=== PATIENT | male | born 1975 | race Caucasian/White ===

== ENCOUNTER 2016-03-29 09:57 | Emergency (ER) | payer MEDICAID ==
[~2016-03-29] VITALS: Ht 170.2 cm; Wt 68.0 kg
[~2016-03-29 09:57] MED LIST: ACET500C5 PO; ACET500T98 PO; DIAZ5TAB4 PO; FAMO-18 PO; HYDR-906 PO; IBUP-1542 PO; NAPR-265 PO; ONDA4TAB35 PO; ULT50 PO
[2016-03-29 10:08] VITALS: Ht 170.2 cm; Wt 68.0 kg
[2016-03-29] MEDS ORDERED: ACETAMINOPHEN 500 MG TAB PO STA (10:51)
[2016-03-29] MEDS ORDERED: ONDANSETRON (ODT) 4 MG TAB ODT STA (10:51)
[2016-03-29] MEDS ORDERED: IBUPROFEN 600 MG TAB PO ONE (11:00)
[2016-03-29] MEDS ORDERED: LIDOCAINE/MYLANTA 40 ML BTL PO ONE (11:00)
[2016-03-29] MEDS ORDERED: LOPERAMIDE 2 MG CAP PO ONE (11:00)
[2016-03-29] MEDS ORDERED: BELLADONNA/PHENOBARBITAL 5ML CUP PO ONE (11:00)
[2016-03-29] MEDS ORDERED: ACET325T33 PO (11:05)
[2016-03-29] MEDS ORDERED: IBUP-1542 PO (11:05)
[2016-03-29] MEDS ORDERED: ONDA4TAB14 PO (11:05)
[2016-03-29] MEDS ORDERED: LOPE2CAP PO (11:05)
[2016-03-29] MEDS ORDERED: BELLADONNA/PHENOBARBITAL 5ML CUP PO SCH (11:30)
--- NOTE | 2016-03-29 12:09 | ERD ---
ER Documentation Chief Complaint Date/Time DATE: 03/29/16 TIME: 12:05 Chief Complaint AP , diarrhea, BLOOD X 2 days. HPI Patient is a 40-year-old male who complains of watery diarrhea today is a mild headache abdominal cramps a little nausea no vomiting some chills no fever no cough no sore throat. He did not take any medication. ROS All systems reviewed and are negative except as per history of present illness. Medications Home Meds Active Scripts Ibuprofen* (Motrin*) 600 Mg Tab, 600 MG PO Q6H Y for PAIN AND OR ELEVATED TEMP, #15 TAB Prov:OMARJAYLEEN DO 03/29/16 Acetaminophen* (Tylenol*) 325 Mg Tablet, 2 TAB PO Q6 Y for PAIN AND OR ELEVATED TEMP, #20 TAB Prov:OMAR,JAYLEEN DO 03/29/16 Ondansetron (Ondansetron Odt) 4 Mg Tab.rapdis, 4 MG PO Q6H Y for NAUSEA AND/OR VOMITING, #6 TAB Prov:OMARJAYLEEN DO 03/29/16 Loperamide Hcl* (Imodium*) 2 Mg Capsule, 2 MG PO .AFTER EA LOOSE BM Y for DIARRHEA, #10 TAB Prov:OMAR,JAYLEEN DO 03/29/16 Famotidine* (Pepcid*) 20 Mg Tablet, 20 MG PO BID for 5 Days, TAB Prov:OSBALDO HANKS PA-C 11/05/15 Ondansetron Hcl* (Zofran* ODT) 4 mg -ODT Tab.disper, 4 MG PO Q6 Y for NAUSEA AND /OR VOMITING, #10 TAB Prov:OSBALDO HANKS PA-C 11/05/15 Acetaminophen* (Tylophen*) 500 Mg Capsule, 1 CAP PO Q6H Y for PAIN AND OR ELEVATED TEMP, #20 CAP Prov:OSBALDO HANKS PA-C 11/05/15 Hydrocodone Bit-Acetaminophen ([place]) 5-325 Mg Tablet, 1 TAB PO QHS Y for PAIN, #10 TAB 0 Refills Prov:ELENI JUAREZ PA-C 03/21/15 Ibuprofen* (Motrin*) 600 Mg Tab, 600 MG PO BID, #30 TAB 0 Refills Prov:ELENI JUAREZ PA-C 03/21/15 Naproxen (Ec-Naprosyn) 500 Mg Tablet.dr, 500 MG PO BID, #60 Prov:ELVIN SHARMA DO 01/08/15 Diazepam* (Diazepam*) 5 Mg Tablet, 5 MG PO TID for MUSCLE SPASMS, #20 TAB Prov:ELVIN SHARMA DO 01/08/15 Tramadol HCl (Tramadol HCl) 50 Mg Tab, 50 MG PO Q6 Y for PAIN, #20 TAB Prov:ELVIN SHARMA DO 01/08/15 Acetaminophen (Tylenol) 500 Mg Tab, 500 MG PO TID, #30 TAB Prov:KATHRYN VIGIL PA-C 11/11/14 Allergies Allergies: Coded Allergies: No Known Allergy (Unverified , 01/08/15) PMhx/Soc Medical and Surgical Hx: pt denies Medical Hx, pt denies Surgical Hx History of Surgery: No Anesthesia Reaction: No Hx Neurological Disorder: No Hx Respiratory Disorders: No Hx Cardiac Disorders: Yes (intermittent hypotension) Hx Psychiatric Problems: No Hx Miscellaneous Medical Probl: Yes (gastritis) Hx Alcohol Use: No Hx Substance Use: No Hx Tobacco Use: No Smoking Status: Current every day smoker Physical Exam Vitals Vital Signs Date Time Temp Pulse Resp B/P Pulse Ox O2 Delivery O2 Flow Rate FiO2 03/29/16 10:08 97.6 66 18 96/64 99 Physical Exam Const: [Alert oriented 4, well-nourished well-developed nontoxic- appearing no apparent distress, interacts appropriately] Head: [Normocephalic/atraumatic, no scalp lesions] Eyes: [Normal Conjunctiva, PERRLA, EOMI no conjunctival injection no conjunctival discharge] ENT: [Normal External Ears, Nose and Mouth, no tonsillar exudates no tonsillar erythema no tonsillar edema oropharynx no erythema. bilateral ear canals are patent, bilateral tympanic membranes nonerythematous.] Neck: [Full range of motion. No meningismus. No cervical lymphadenopathy] Resp: [Clear to auscultation bilaterally, no wheezes rhonchi or rales, breathing normally, no tachypnea no nasal flaring no grunting no accessory muscle use no retractions] Cardio: [Regular rate and rhythm, no murmurs] Abd: [Soft, non tender, non distended. Normal bowel sounds, no rebound rigidity or guarding. Normoactive bowel sounds no flank tenderness, negative McBurney's negative Mera sign.] Skin: [No petechiae or rashes, no hives no urticaria no abscess no laceration no new warmth] Back: [No midline or flank tenderness, full range of motion without pain ] Ext: [No cyanosis, clubbing or edema] Neuro: M/S: Alert and oriented 4. Face: EOMI, face and pharynx with normal sensation and function Motor: Normal strength throughout, muscle strength is 5 out of 5 bilateral upper extremity and bilateral lower extremity Sensation: Normal sensation throughout Speech: Normal Cerebel: Normal coordination Normal gait DTR: 2+ and symmetric upper/lower extremities Psych: [Normal Mood and Affect, no suicidal ideation or homicide ideation] Results 24 hrs Current Medications Medications (Trade) Dose Ordered Sig/[place] Route PRN Reason Start Time Stop Time Status Last Admin Dose Admin Ibuprofen (Motrin) 600 mg ONCE ONCE PO 03/29/16 11:00 03/29/16 11:01 DC 03/29/16 11:00 Acetaminophen (Tylenol Tab) 1,000 mg ONCE STAT PO 03/29/16 10:51 03/29/16 10:54 DC 03/29/16 11:00 Miscellaneous Medication (Gi Cocktail (2)) 40 ml ONCE ONCE PO 03/29/16 11:00 03/29/16 11:01 DC 03/29/16 11:00 Belladonna Alkaloids/ Phenobarbital () 10 ml ONCE ONCE PO 03/29/16 11:00 03/29/16 11:01 DC Loperamide HCl (Imodium Cap) 4 mg ONCE ONCE PO 03/29/16 11:00 03/29/16 11:01 DC 03/29/16 11:07 Ondansetron HCl (Zofran Odt) 4 mg ONCE STAT ODT 03/29/16 10:51 03/29/16 10:54 DC 03/29/16 11:00 Belladonna Alkaloids/ Phenobarbital () 10 ml ONCE PO 03/29/16 11:30 03/29/16 11:30 DC 03/29/16 11:07 Procedures/MDM I doubt bacterial gastroenteritis that he has no fever or bloody diarrhea he appears well. May be malabsorption more likely a viral gastroenteritis as he has headache little nausea and abdominal cramps. He has no UTI symptoms were that UTI or pyelonephritis. The abdomen is not tender so I doubt cholangitis cholecystitis choledocholithiasis appendicitis or diverticulitis. Vital signs are stable we gave him medications for his symptoms here and will give him medications for symptoms for home. Follow-up PCP ED precautions discussed Departure Diagnosis: Primary Impression: Abdominal pain Abdominal location: generalized Qualified Code: R10.84 - Generalized abdominal pain Additional Impression: Diarrhea Diarrhea type: presumed infectious Qualified Code: A09 - Diarrhea of presumed infectious origin Condition: Stable Patient Instructions: Abdominal Pain, Treating Diarrhea, Gastroenteritis, Viral (6Y-Adult) JAYLEEN NELSON DO Mar 29, 2016 12:09
== END 2016-03-29 11:22 | disposition home or self-care (01) ==
LOC: FTE 09:57
DX: R10.84 Generalized abdominal pain (principal); A09 Infectious gastroenteritis and colitis, unspecified; F17.210 Nicotine dependence, cigarettes, uncomplicated; R11.0 Nausea
CPT/HCPCS: Z7502; Z7610; 99283

== ENCOUNTER 2016-04-08 21:26 | Emergency (ER) | payer MEDICAID ==
[~2016-04-08] VITALS: Wt 84.0 kg
[~2016-04-08 21:26] MED LIST changes: +ACET325T33 PO; +LOPE2CAP PO; +ONDA4TAB14 PO
[2016-04-08] MEDS ORDERED: ONDANSETRON 4 MG INJ IV STA (22:05)
[2016-04-08] MEDS ORDERED: FAMOTIDINE 20 MG INJ IV STA (22:05)
[2016-04-08] MEDS ORDERED: morphine 4 MG/ML VIAL IV STA (22:05)
[2016-04-08] MEDS ORDERED: SOD CHLORIDE 0.9% 1,000 ML IV STA (22:05)
[2016-04-08] MEDS ORDERED: BELLADONNA/PHENOBARBITAL TAB PO STA (22:05)
[2016-04-08] MEDS ORDERED: LIDOCAINE/MYLANTA 40 ML BTL PO STA (22:05)
[2016-04-08] MEDS ORDERED: SLEEP MEDS PO (22:23)
[2016-04-08 22:39] LABS: BASOPHIL # 0.1 10^3/ul (0.0-0.1); BASOPHILS % 0.6 % (0.0-2.0); EOSINOPHILS # 0.2 10^3/ul (0.0-0.5); EOSINOPHILS % 2.8 % (0.0-7.0); HEMATOCRIT 38.9 % (42.0-52.0); HEMOGLOBIN 13.1 g/dl (14.0-18.0); LYMPHOCYTES % 44.1 % (15.0-51.0); MEAN CORPUSCULAR HEMOGLOBIN 31.2 pg (29.0-33.0); MEAN CORPUSCULAR HGB CONC 33.7 g/dl (32.0-37.0); MEAN CORPUSCULAR VOLUME 92.5 fl (82.0-101.0); MEAN PLATELET VOLUME 8.3 fl (7.4-10.4); MONOCYTE # 0.8 10^3/ul (0.3-0.9); MONOCYTES % 8.9 % (0.0-11.0); NEUTROPHIL # 3.9 10^3/ul (1.6-7.5); NEUTROPHILS % 43.6 % (39.0-77.0); PLATELET COUNT 255 10^3/UL (140-440); RED CELL DISTRIBUTION WIDTH 13.2 % (11.5-14.5)
[2016-04-08 22:41] LABS: INR 0.91; PROTIME 12.2 Sec (12.2-14.2)
[2016-04-08 22:45] LABS: CONDITION 1
[2016-04-08 22:49] LABS: ALBUMIN 4.7 g/dl (3.3-4.9); POTASSIUM 3.8 mmol/L (3.5-5.1)
[2016-04-08 22:51] LABS: BILIRUBIN,INDIRECT 0.2 mg/dl (0-1.1); BILIRUBIN,TOTAL 0.2 mg/dl (0.2-1.3); CREATININE 0.78 mg/dl (0.61-1.24)
[2016-04-08 22:52] LABS: ALBUMIN/GLOBULIN RATIO 1.38; CALCIUM 9.6 mg/dl (8.4-10.2); TOTAL PROTEIN 8.1 g/dl (6.1-8.1)
--- NOTE | 2016-04-08 23:04 | RADRPT ---
PROCEDURE: CT Abdomen and Pelvis without contrast. CLINICAL INDICATION: Abdominal and pelvic pain. TECHNIQUE: CT scan of the abdomen and pelvis without contrast was performed. Coronal and sagittal reformatted images were obtained from the axial source images. Images were reviewed on a [employer] PACS workstation. Total exam DLP is 387.16 mGy-cm. CTDIvol is 6.92 mGy. One or more of the fo [place] dose reduction techniques were used: Automated exposure control, adjustment of the mA and/or kV according to patient size, use of iterative reconstruction technique. COMPARISON: None. FINDINGS: The lung bases are normal. There is no pleural effusion. The liver is normal in size and attenuation. There is no focal hepatic lesion. The gallbladder and bile ducts are normal. The spleen is normal in size. There is no focal splenic lesion. Both adrenals are normal with no enlargement or mass. The pancreas is unremarkable with no mass or evidence of pancreatitis. There is no renal mass or hydronephrosis. There is a nonobstructing 0.2 cm calculus in the upper rig ht kidney, a nonobstructing 0.1 cm calculus in the mid right kidney, and a nonobstructing 0.2 cm marianela culus in the lower right kidney. There is no other renal calculus or ureteral calculus. The abdominal aorta is not dilated. There is no retroperitoneal lymphadenopathy or mass. There is no pelvic lymphadenopathy or mass. The bladder and distal ureters are normal. The periappendiceal region is unremarkable with no evidence of appendicitis. There is mild diverticulosis of the sigmoid colon. There is no evidence of diverticulitis. The bow el and mesentery are otherwise normal. There is no free fluid or free gas. The osseous structures are unremarkable with no fracture or lytic lesion. IMPRESSION: 1. Multiple nonobstructing right renal calculi. 2. Mild diverticulosis of the sigmoid colon. No evidence of diverticulitis. 3. Otherwise normal noncontrast CT scan of the abdomen and pelvis. RPTAT: QQ .Toney Lucero MD, MD Date Time Electronically viewed and signed by .Toney Lucero MD, on 04/08/2016 23:04 .R/
[2016-04-08] MEDS ORDERED: KETOROLAC 15 MG INJ IV STA (23:22)
[2016-04-08] MEDS ORDERED: OXYC-279 PO (23:33)
[2016-04-08] MEDS ORDERED: ONDA4TAB8 PO (23:33)
[2016-04-08] MEDS ORDERED: IBUP-1542 PO (23:33)
--- NOTE | 2016-04-08 23:40 | ERD ---
ER Documentation Chief Complaint Date/Time DATE: 04/08/16 TIME: 23:38 Chief Complaint return visit for abd pain one week. nauseated HPI 40-year-old man has continued abdominal pain and nausea. He was seen and evaluated here last week a workup was unremarkable although CT scan imaging was deemed unnecessary at that time. He denies fevers or chills, no weight loss, no headache or blurry vision, no recent trauma, no dysuria. Patient does have a history of chronic recurrent abdominal pain. ROS All systems reviewed and are negative except as per history of present illness. Medications Home Meds Active Scripts Oxycodone HCl/Acetaminophen (Percocet 5-325 mg Tablet) 1 Each Tablet, 1 EACH PO TID for PAIN, #12 TAB Prov:REAL VIERA MD 04/08/16 Ondansetron Hcl* (Zofran*) 4 Mg Tablet, 4 MG PO Q8H Y for NAUSEA AND/OR VOMITING , #15 TAB Prov:REAL VIERA MD 04/08/16 Ibuprofen* (Ibuprofen*) 600 Mg Tablet, 600 MG PO Q8 for PAIN AND/OR INFLAMMATION , #30 TAB Prov:REAL VIERA MD 04/08/16 Reported Medications [Sleep Meds] No Conflict Check, PO QHS 04/08/16 Discontinued Scripts Ibuprofen* (Motrin*) 600 Mg Tab, 600 MG PO Q6H Y for PAIN AND OR ELEVATED TEMP, #15 TAB Prov:JAYLEEN NELSON DO 03/29/16 Acetaminophen* (Tylenol*) 325 Mg Tablet, 2 TAB PO Q6 Y for PAIN AND OR ELEVATED TEMP, #20 TAB Prov:JAYLEEN NELSON DO 03/29/16 Ondansetron (Ondansetron Odt) 4 Mg Tab.rapdis, 4 MG PO Q6H Y for NAUSEA AND/OR VOMITING, #6 TAB Prov:JAYLEEN NELSON DO 03/29/16 Loperamide Hcl* (Imodium*) 2 Mg Capsule, 2 MG PO .AFTER EA LOOSE BM Y for DIARRHEA, #10 TAB Prov:JAYLEEN NELSON DO 03/29/16 Famotidine* (Pepcid*) 20 Mg Tablet, 20 MG PO BID for 5 Days, TAB Prov:OSBALDO HANKS PA-C 11/05/15 Ondansetron Hcl* (Zofran* ODT) 4 mg -ODT Tab.disper, 4 MG PO Q6 Y for NAUSEA AND /OR VOMITING, #10 TAB Prov:OSBALDO HANKS PA-C 11/05/15 Acetaminophen* (Tylophen*) 500 Mg Capsule, 1 CAP PO Q6H Y for PAIN AND OR ELEVATED TEMP, #20 CAP Prov:OSBALDO HANKS PA-C 11/05/15 Hydrocodone Bit-Acetaminophen ([place]) 5-325 Mg Tablet, 1 TAB PO QHS Y for PAIN, #10 TAB 0 Refills Prov:ELENI JUAREZ PA-C 03/21/15 Ibuprofen* (Motrin*) 600 Mg Tab, 600 MG PO BID, #30 TAB 0 Refills Prov:ELENI JUAREZ PA-C 03/21/15 Naproxen (Ec-Naprosyn) 500 Mg Tablet.dr, 500 MG PO BID, #60 Prov:ELVIN SHARMA DO 01/08/15 Diazepam* (Diazepam*) 5 Mg Tablet, 5 MG PO TID for MUSCLE SPASMS, #20 TAB Prov:ELVIN SHARMA DO 01/08/15 Tramadol HCl (Tramadol HCl) 50 Mg Tab, 50 MG PO Q6 Y for PAIN, #20 TAB Prov:ELVIN SHARMA DO 01/08/15 Acetaminophen (Tylenol) 500 Mg Tab, 500 MG PO TID, #30 TAB Prov:KATHRYN VIGIL PA-C 11/11/14 Allergies Allergies: Coded Allergies: No Known Allergy (Unverified , 04/08/16) PMhx/Soc History of hypotension, chronic abdominal pain History of Surgery: No Anesthesia Reaction: No Hx Neurological Disorder: No Hx Respiratory Disorders: No Hx Cardiac Disorders: Yes (intermittent hypotension) Hx Psychiatric Problems: No Hx Miscellaneous Medical Probl: Yes (gastritis) Hx Alcohol Use: No Hx Substance Use: No Hx Tobacco Use: No Smoking Status: Never smoker FmHx Family History: No diabetes Physical Exam Vitals Vital Signs Date Time Temp Pulse Resp B/P Pulse Ox O2 Delivery O2 Flow Rate FiO2 04/08/16 23:55 98.9 72 18 103/76 100 Room Air 04/08/16 22:00 98.9 76 18 104/79 100 Room Air 04/08/16 21:32 98.9 94 18 128/77 100 Physical Exam GENERAL: Well-developed, well-nourished, well-hydrated, in no apparent distress , looks nontoxic in appearance HEENT: Moist mucous membranes, pink conjunctiva, no cervical spine tenderness or step-off deformities, no goiter, no jaundice or icterus, extraocular movements intact without pain. No submandibular induration, and no pharyngeal erythema NEURO: Alert and oriented 3, cranial nerves II through XII intact bilaterally, pupils equal round reactive to light, no focal deficits or facial asymmetry, sensation intact distally Strength 5/5 in upper and lower extremities bilaterally CARDIAC: Regular rate and rhythm, no murmurs rubs or gallops LUNGS: Clear bilaterally no wheezing crackles or stridor ABDOMEN: Voluntary guarding although nontender abdomen, no guarding, no rigidity , no rebound, no psoas sign no obturator sign. Normoactive bowel sounds SKIN: Warm and dry to touch, no abrasions, contusions, or hematomas, no lacerations, no ecchymosis, no target lesions, and without ulcers EXTREMITIES: No clubbing cyanosis or edema, calves are bilaterally symmetrical, no Homans sign, no popliteal cord sign. Distal pulses equal and bilateral PSYCH: Normal affect without agitation or irritability Result Diagram: 04/08/16220904/08/162209 Results 24 hrs Laboratory Tests Test 04/08/16 22:10 Alanine Aminotransferase (ALT/SGPT) 18IU/L Albumin 4.7g/dl Albumin/Globulin Ratio 1.38 Alkaline Phosphatase 55IU/L Anion Gap 18 Aspartate Amino Transf (AST/SGOT) 27IU/L Basophils # 0.110^3/ul Basophils % 0.6% Blood Urea Nitrogen 10mg/dl Calcium Level 9.6mg/dl Carbon Dioxide Level 28mmol/L Chloride Level 104mmol/L Creatinine 0.78mg/dl Direct Bilirubin 0.00mg/dl Eosinophils # 0.210^3/ul Eosinophils % 2.8% Globulin 3.40g/dl Glucose Level 85mg/dl Hematocrit 38.9% Hemoglobin 13.1g/dl INR International Normalized Ratio 0.91 Indirect Bilirubin 0.2mg/dl Lipase 72U/L Lymphocytes # 4.010^3/ul Lymphocytes % 44.1% Mean Corpuscular Hemoglobin 31.2pg Mean Corpuscular Hemoglobin Concent 33.7g/dl Mean Corpuscular Volume 92.5fl Mean Platelet Volume 8.3fl Monocytes # 0.810^3/ul Monocytes % 8.9% Neutrophils # 3.910^3/ul Neutrophils % 43.6% Nucleated Red Blood Cells # 0.010^3/ul Nucleated Red Blood Cells % 0.0/100WBC Platelet Count 80207^3/UL Potassium Level 3.8mmol/L Prothrombin Time 12.2Sec Prothrombin Time Ratio 1.0 Red Blood Count 4.2010^6/ul Red Cell Distribution Width 13.2% Sodium Level 146mmol/L Total Bilirubin 0.2mg/dl Total Protein 8.1g/dl White Blood Count 9.010^3/ul Current Medications Medications (Trade) Dose Ordered Sig/[place] Route PRN Reason Start Time Stop Time Status Last Admin Dose Admin Sodium Chloride (NS) 1,000 ml @ 1,000 mls/hr Q1H STAT IV 04/08/16 22:05 04/08/16 23:04 DC 04/08/16 22:36 Morphine Sulfate (morphine) 4 mg ONCE STAT IV 04/08/16 22:05 04/08/16 22:06 DC 04/08/16 22:24 Ondansetron HCl (Zofran Inj) 4 mg ONCE STAT IV 04/08/16 22:05 04/08/16 22:06 DC 04/08/16 22:23 Famotidine (Pepcid Iv) 40 mg ONCE STAT IV 04/08/16 22:05 04/08/16 22:06 DC 04/08/16 22:23 Miscellaneous Medication (Gi Cocktail (2)) 40 ml ONCE STAT PO 04/08/16 22:05 04/08/16 22:06 DC 04/08/16 22:24 Belladonna/ Phenobarbital () 2 tab ONCE STAT PO 04/08/16 22:05 04/08/16 22:07 DC 04/08/16 22:23 Ketorolac Tromethamine (Toradol) 15 mg ONCE STAT IV 04/08/16 23:22 04/08/16 23:23 DC 04/09/16 00:12 Procedures/MDM IV line was established patient was placed on telemetry monitor rhythm strip revealed a sinus rhythm at about 80 bpm with upright P and T waves. Patient was afebrile. I administered 1 L normal saline intravenously, morphine 4 mg IV, Zofran 4 mg IV , GI cocktail 50 cc p.o., and famotidine 40 mg IV with good response. For continued discomfort he received Toradol 50 mg IV with resolution of pain. CBC, electrolytes, liver function tests were all normal. CT scan of the abdomen and pelvis was performed, given the patient's symptoms. There were nonobstructing right renal calculi and no evidence of diverticulitis. Please refer to radiologist dictation for full report. Differential diagnoses considered, included but not limited to acute coronary syndrome, pulmonary embolism, aortic dissection, abdominal aortic aneurysm, sepsis, stroke, meningitis, encephalitis, pneumonia, appendicitis, cholecystitis , bowel obstruction, pyelonephritis, nephrolithiasis, cystitis, as well as metabolic, hematologic, and electrolyte abnormalities. As well as abscess, cellulitis, fractures, and dislocations. Patient feels much better at this time, and vital signs are normal, symptoms have improved. I did give strict instructions to return to the ED if symptoms continue or worsen, patient will otherwise follow-up with primary care physician. Patient understood instructions and agreed to plan. Departure Diagnosis: Primary Impression: Kidney stone Additional Impression: Epigastric abdominal pain Condition: Good Patient Instructions: Kidney Stone W/ Colic REAL VIERA MD Apr 08, 2016 23:40
[2016-04-08 23:55] VITALS: BP 103/76; PULSE 72; RESP 18; TEMP 98.9
== END 2016-04-08 23:55 | disposition home or self-care (01) ==
LOC: E/R 21:26
DX: N20.0 Calculus of kidney (principal); R10.13 Epigastric pain; R11.0 Nausea
CPT/HCPCS: 36415; 74176; 80053; 83690; 85025; 85610; 96374; 96375; J1885; J2270; J2405; J7030; Z7502; Z7610

== ENCOUNTER 2016-05-21 11:51 | Emergency (ER) | payer MEDICAID ==
[~2016-05-21] VITALS: Ht 170.2 cm; Wt 67.9 kg
[~2016-05-21 11:51] MED LIST changes: -ACET325T33 PO; -ACET500C5 PO; -ACET500T98 PO; -DIAZ5TAB4 PO; -FAMO-18 PO; -HYDR-906 PO; -LOPE2CAP PO; -NAPR-265 PO; -ONDA4TAB14 PO; -ONDA4TAB35 PO; +ONDA4TAB8 PO; +OXYC-279 PO; +SLEEP MEDS PO; -ULT50 PO
[2016-05-21 12:14] VITALS: Ht 170.2 cm; Wt 67.9 kg
[2016-05-21] MEDS ORDERED: KETOROLAC 60 MG INJ IM STA (13:57)
[2016-05-21 14:29] LABS: URINE BLOOD (Dip) POC Trace-intact (NEGATIVE)
--- NOTE | 2016-05-21 15:08 | RADRPT ---
PROCEDURE: CT Abdomen and Pelvis without contrast. CLINICAL INDICATION: Right flank and right lower quadrant pain TECHNIQUE: CT of the abdomen and pelvis was performed on a multi-detector scanner without IV contr ast. Coronal and sagittal images were reformatted from the axial data set. One or more of the foll owing dose reduction techniques were used: automated exposure control, adjustment of the mA and/or kV according to patient size, use of iterative reconstruction technique. CTDI = 5.53 mGy. DLP = 323 .28 mGy-cm. COMPARISON: CT, 04/08/2016 FINDINGS: CT abdomen: The lung bases are clear. The heart size is normal, without pericardial effusion. Liver demonstrat es scattered benign cysts. Gallbladder, biliary tree, pancreas, spleen, adrenal glands and left kid marta are unremarkable. Small nonobstructive right renal calculi are noted measuring up to 3 mm. The re is no ureterolithiasis or obstructive uropathy. The stomach is grossly unremarkable. The aorta is of normal caliber. There is no retroperitoneal lymphadenopathy. The jodee hepatis reg ion is clear. CT pelvis: No bowel obstruction, free intraperitoneal air or abscess is identified. The appendix is well visua lized and normal. Scattered colonic diverticula are seen without diverticulitis. There is no colit is. Urinary bladder is grossly unremarkable. No pelvic mass, free fluid or lymphadenopathy is seen . The surrounding osseous structures are unremarkable. No osteolytic or osteoblastic lesion is detect ed. IMPRESSION: 1. Small nonobstructive right renal calculi are noted, without ureterolithiasis or obstructive urop athy. 2. Normal appendix. 3. Scattered colonic diverticula are seen without diverticulitis. 4. No mass, lymphadenopathy, or acute inflammatory process is identified. RPTAT: HDWR .Michael Block MD, MD Date Time Electronically viewed and signed by .Michael Block MD, MD on 05/21/2016 15:08 .R/
[2016-05-21] MEDS ORDERED: TRAM50TA2 PO (15:38)
[2016-05-21] MEDS ORDERED: IBUP-1542 PO (15:38)
--- NOTE | 2016-05-21 15:44 | ERD ---
ER Documentation Chief Complaint Date/Time DATE: 05/21/16 TIME: 15:42 Chief Complaint AP and dysuria X 4 days. HPI This 40-year-old male complains of some right flank pain and sensation of dysuria for last 4 days. He is not noted any hematuria. He has some mild right mid abdominal pain. Denies fevers, vomiting, shortness breath or chest pain. He does have a history of kidney stones but it feels slightly different ROS All systems reviewed and are negative except as per history of present illness. Medications Home Meds Active Scripts Tramadol HCl (Tramadol HCl) 50 Mg Tablet, 50 MG PO Q4 Y for PAIN, #15 TAB Prov:JEAN CARLOS CORMIER MD 05/21/16 Ibuprofen* (Motrin*) 600 Mg Tab, 600 MG PO Q6, #30 TAB Prov:JEAN CARLOS CORMIER MD 05/21/16 Oxycodone HCl/Acetaminophen (Percocet 5-325 mg Tablet) 1 Each Tablet, 1 EACH PO TID for PAIN, #12 TAB Prov:REAL VIERA MD 04/08/16 Ondansetron Hcl* (Zofran*) 4 Mg Tablet, 4 MG PO Q8H Y for NAUSEA AND/OR VOMITING , #15 TAB Prov:REAL VIERA MD 04/08/16 Ibuprofen* (Ibuprofen*) 600 Mg Tablet, 600 MG PO Q8 for PAIN AND/OR INFLAMMATION , #30 TAB Prov:REAL VIERA MD 04/08/16 Reported Medications [Sleep Meds] No Conflict Check, PO QHS 04/08/16 Allergies Allergies: Coded Allergies: No Known Allergy (Unverified , 05/21/16) PMhx/Soc Medical and Surgical Hx: pt denies Medical Hx, pt denies Surgical Hx History of Surgery: No Anesthesia Reaction: No Hx Neurological Disorder: No Hx Respiratory Disorders: No Hx Cardiac Disorders: No Hx Psychiatric Problems: No Hx Miscellaneous Medical Probl: Yes (gastritis) Hx Alcohol Use: No Hx Substance Use: No Hx Tobacco Use: No Smoking Status: Never smoker Physical Exam Vitals Vital Signs Date Time Temp Pulse Resp B/P Pulse Ox O2 Delivery O2 Flow Rate FiO2 05/21/16 12:14 97.8 76 16 109/61 98 Physical Exam Const: [] Alert, [id number] per Head: Atraumatic Eyes: Normal Conjunctiva ENT: Normal External Ears, Nose and Mouth. Neck: Full range of motion..~ No meningismus. Resp: Clear to auscultation bilaterally Cardio: Regular rate and rhythm, no murmurs Abd: Soft, non tender, non distended. Normal bowel sounds Skin: No petechiae or rashes Back: No midline. there is mild right flank tenderness. There is minimal right lower quadrant tenderness without exquisite tenderness at McBurney's point and no Mera sign and no rebound. Ext: No cyanosis, or edema Neur: Awake and alert Psych: Normal Mood and Affect Results 24 hrs Laboratory Tests Test 05/21/16 14:31 Bedside Urine Blood Trace-intact Bedside Urine Glucose (UA) Negative Bedside Urine Ketones (LAB) Negative Bedside Urine Leukocyte Esterase (L Negative Bedside Urine Nitrite (LAB) Negative Bedside Urine Protein (LAB) Negative Bedside Urine pH (LAB) 5.5 Current Medications Medications (Trade) Dose Ordered Sig/[place] Route PRN Reason Start Time Stop Time Status Last Admin Dose Admin Ketorolac Tromethamine (Toradol) 60 mg ONCE STAT IM 05/21/16 13:57 05/21/16 13:59 DC 05/21/16 14:31 Procedures/MDM Patient shows trace hemoglobin in the urine. CT abdomen and pelvis shows small renal calculus without evidence of hydronephrosis or acute abnormalities. There is diverticulosis without diverticulitis. There is a normal appendix seen. Patient was given Toradol 60 mg IM and had a benign abdomen on serial exam. Patient has right flank pain radiating to the right lower abdomen with signs consistent with renal colic. There is no signs of appendicitis, hepatobiliary disease, acute abdomen, additional emergent causes of flank pain or abdominal pain. Treated with tramadol and ibuprofen, instructed for clear fluids and instructions to follow-up with primary doctor. He should return for fevers, vomiting, new worsening symptoms or primary care doctor. Departure Diagnosis: Primary Impression: Renal colic on right side Additional Impression: Abdominal pain Abdominal location: unspecified location Qualified Code: R10.9 - Abdominal pain, unspecified location Condition: Stable Patient Instructions: Flank Pain, Uncertain Cause, Kidney Stone W/ Colic Additional Instructions: EXAMINES DIECE DOLOR PROBABLAMENTE DE YAN. PHILLY MUCHO AGUA. . Cheque otro vez con howard doctor primario en el proximo [facility] or regresa para mas o nueva simptomas. JEAN CARLOS CORMIER MD May 21, 2016 15:44
== END 2016-05-21 15:52 | disposition home or self-care (01) ==
LOC: FTE 11:51
DX: N23 Unspecified renal colic (principal)
CPT/HCPCS: 74176; 81003; 96372; J1885; Z7502

== ENCOUNTER 2016-10-21 18:13 | Emergency (ER) | payer MEDICAID ==
[~2016-10-21] VITALS: Ht 170.2 cm; Wt 63.5 kg
[~2016-10-21 18:13] MED LIST changes: +TRAM50TA2 PO
[2016-10-21 18:20] VITALS: Ht 170.2 cm; Wt 63.5 kg
[2016-10-21] MEDS ORDERED: ACETAMINOPHEN 500 MG TAB PO STA (18:49)
[2016-10-21] MEDS ORDERED: DIPHENHYDRAMINE 25 MG CAP PO ONE (19:00)
[2016-10-21] MEDS ORDERED: IBUPROFEN 600 MG TAB PO ONE (19:00)
[2016-10-21] MEDS ORDERED: BEN25 PO (19:18)
[2016-10-21] MEDS ORDERED: IBUP-1542 PO (19:18)
--- NOTE | 2016-10-21 19:33 | ERD ---
ER Documentation Chief Complaint Date/Time DATE: 10/21/16 TIME: 19:33 Chief Complaint POSSIBLE SPIDER BITE HPI This is a 41-year-old male presents to the ER with a bug bite to his right forearm. Patient was in a truck when he felt something bite him about an hour ago. His right forearm then began to hurt and he states that the area got red and slightly swollen. Patient was searching online and became worried that his red blood cells would be depleted secondary to bug bite and decided to come to the ER. Patient took ibuprofen at home for the pain and this helped. Patient denies any numbness or tingling of his forearm, hand. He denies any facial swelling, difficulty in breathing, chest pain, shortness of breath, other rashes. ROS 12 point review of systems was done, all negative except per HPI. Medications Home Meds Active Scripts Ibuprofen* (Motrin*) 600 Mg Tab, 600 MG PO Q6, #30 TAB Prov:LOLI FRAIRE 10/21/16 Diphenhydramine Hcl* (Benadryl*) 25 Mg Cap, 25 MG PO Q6, #30 CAP Prov:LOLI FRAIRE 10/21/16 Tramadol HCl (Tramadol HCl) 50 Mg Tablet, 50 MG PO Q4 Y for PAIN, #15 TAB Prov:JEAN CARLOS CORMIER MD 05/21/16 Ibuprofen* (Motrin*) 600 Mg Tab, 600 MG PO Q6, #30 TAB Prov:JEAN CARLOS CORMIER MD 05/21/16 Oxycodone HCl/Acetaminophen (Percocet 5-325 mg Tablet) 1 Each Tablet, 1 EACH PO TID for PAIN, #12 TAB Prov:REAL VIERA MD 04/08/16 Ondansetron Hcl* (Zofran*) 4 Mg Tablet, 4 MG PO Q8H Y for NAUSEA AND/OR VOMITING , #15 TAB Prov:REAL VIERA MD 04/08/16 Ibuprofen* (Ibuprofen*) 600 Mg Tablet, 600 MG PO Q8 for PAIN AND/OR INFLAMMATION , #30 TAB Prov:REAL VIERA MD 04/08/16 Reported Medications [Sleep Meds] No Conflict Check, PO QHS 04/08/16 Allergies Allergies: Coded Allergies: No Known Allergy (Unverified , 05/21/16) PMhx/Soc History of Surgery: No Anesthesia Reaction: No Hx Neurological Disorder: No Hx Respiratory Disorders: No Hx Cardiac Disorders: No Hx Psychiatric Problems: No Hx Miscellaneous Medical Probl: Yes (gastritis) Hx Alcohol Use: No Hx Substance Use: No Hx Tobacco Use: Yes Smoking Status: Current every day smoker Physical Exam Vitals Vital Signs Date Time Temp Pulse Resp B/P Pulse Ox O2 Delivery O2 Flow Rate FiO2 10/21/16 18:20 98.2 87 19 106/64 97 Physical Exam GENERAL: The patient is well developed and appropriate for usual state of health , in no apparent distress. HEENT: Atraumatic. No facial swelling CHEST: Clear to auscultation bilaterally. There are no rales, wheezes or rhonchi. HEART: Regular rate and rhythm. No murmurs, clicks, rubs or gallops. NEURO: Alert and oriented. SKIN: There is a 2 cm x 1 cm round bug bite to the patient's right volar midforearm Results 24 hrs Current Medications Medications (Trade) Dose Ordered Sig/Malka Route PRN Reason Start Time Stop Time Status Last Admin Dose Admin Ibuprofen (Motrin) 600 mg ONCE ONCE PO 10/21/16 19:00 10/21/16 19:01 DC Diphenhydramine HCl (Benadryl) 25 mg ONCE ONCE PO 10/21/16 19:00 10/21/16 19:01 DC 10/21/16 18:41 Acetaminophen (Tylenol Tab) 1,000 mg ONCE STAT PO 10/21/16 18:49 10/21/16 18:51 DC 10/21/16 19:01 Procedures/MDM Differential Diagnosis: dermatitis, allergic urticaria, viral exanthem, insect bite, fungal infection ,viral exanthem, hand foot mouth disease, , impetigo, cellulitis, abscess, angie kev syndrome, meningocemia, necrotizing fasciitis. This is a 41-year-old male presents to the ER with a bug bite that occurred an hour ago. Patient does not appear to be having a severe allergic reaction, he does not have any angioedema or difficulty in breathing. Patient likely has a localized allergic reaction to bug bite. He will be sent with ibuprofen and Benadryl. Suspicion for infection is low as there are no signs and symptoms of cellulitis, abscess or deep space infection. Patient is to follow-up with his primary care doctor within 1-2 days return to ER sooner if symptoms worsen. My medical decision making shared with the patient he understands and agrees with plan. Departure Diagnosis: Primary Impression: Bite Condition: Stable Patient Instructions: Animal Bite, General Additional Instructions: Call your primary care doctor TOMORROW for an appointment during the next 1-2 days.See the doctor sooner or return here if your condition worsens before your appointment time. LOLI FRARIE Oct 21, 2016 19:33
== END 2016-10-21 19:31 | disposition home or self-care (01) ==
LOC: FTE 18:13
DX: S50.861A Insect bite (nonvenomous) of right forearm, initial encounter (principal); F17.210 Nicotine dependence, cigarettes, uncomplicated; W57.XXXA Bitten or stung by nonvenomous insect and other nonvenomous arthropods, initial encounter; Y92.9 Unspecified place or not applicable
CPT/HCPCS: Z7502; Z7610; 99283

== ENCOUNTER 2018-07-17 09:24 | Emergency (ER) | payer MEDICAID ==
[~2018-07-17] VITALS: Wt 75.0 kg
[~2018-07-17 09:24] MED LIST changes: +BEN25 PO
[2018-07-17] MEDS ORDERED: FAMOTIDINE 20 MG TAB PO STA (09:44)
[2018-07-17] MEDS ORDERED: KETOROLAC 30 MG INJ IV STA (09:44)
[2018-07-17] MEDS ORDERED: ONDANSETRON 4 MG INJ IV STA (09:44)
[2018-07-17] MEDS ORDERED: SOD CHLORIDE 0.9% 1,000 ML IV STA (09:44)
[2018-07-17] MEDS ORDERED: FAMOTIDINE 20 MG INJ IV ONE (10:30)
[2018-07-17] MEDS ORDERED: SOD CHLORIDE 0.9% 100 ML ONE (11:13)
[2018-07-17] MEDS ORDERED: IOHEXOL 300MG/ML 150 ML BTL ONE (11:13)
[2018-07-17] MEDS ORDERED: TAMS-14 PO (12:47)
[2018-07-17] MEDS ORDERED: HYDR-4011 PO (12:47)
--- NOTE | 2018-07-17 13:09 | ERD ---
ER Documentation Chief Complaint Chief Complaint AP SINCE LAST NIGHT HPI 42-year-old male presenting with abdominal pain since last night. Patient states he has had mild chest pain with some vomiting but denies any shortness of breath. He denies any coughing. Denies abdominal pain. Denies fevers. Has not taken medications for symptoms. Denies medical problems. NKDA. Surgical history finger surgery. Social history smokes 10 cigarettes a day. ROS All systems reviewed and are negative except as per history of present illness. Medications Home Meds Active Scripts Tamsulosin Hcl* (Flomax*) 0.4 Mg Cap.er.24h, 0.4 MG PO BID, #30 CAP Prov:KATHRYN VIGIL PA-C 07/17/18 Hydrocodone/Acetaminophen ([place] 5-325 Tablet) 1 Each Tablet, 1 TAB PO Q6H PRN for PAIN, #7 TAB Prov:KATHRYN VIGIL PA-C 07/17/18 Ibuprofen* (Motrin*) 600 Mg Tab, 600 MG PO Q6, #30 TAB Prov:LOLI FRAIRE 10/21/16 Diphenhydramine Hcl* (Benadryl*) 25 Mg Cap, 25 MG PO Q6, #30 CAP Prov:LOLI FRAIRE 10/21/16 Tramadol HCl (Tramadol HCl) 50 Mg Tablet, 50 MG PO Q4 PRN for PAIN, #15 TAB Prov:JEAN CARLOS CORMIER MD 05/21/16 Ibuprofen* (Motrin*) 600 Mg Tab, 600 MG PO Q6, #30 TAB Prov:JEAN CARLOS CORMIER MD 05/21/16 Oxycodone HCl/Acetaminophen (Percocet 5-325 mg Tablet) 1 Each Tablet, 1 EACH PO TID for PAIN, #12 TAB Prov:REAL VIERA MD 04/08/16 Ondansetron Hcl* (Zofran*) 4 Mg Tablet, 4 MG PO Q8H PRN for NAUSEA AND/OR VOMITING, #15 TAB Prov:REAL VIERA MD 04/08/16 Ibuprofen* (Ibuprofen*) 600 Mg Tablet, 600 MG PO Q8 for PAIN AND/OR INFLAMMATION, #30 TAB Prov:REAL VIERA MD 04/08/16 Reported Medications [Sleep Meds] No Conflict Check, PO QHS 04/08/16 Allergies Allergies: Coded Allergies: No Known Allergy (Unverified , 05/21/16) PMhx/Soc History of Surgery: Yes (left middle finger sx) Anesthesia Reaction: No Hx Neurological Disorder: No Hx Respiratory Disorders: No Hx Cardiac Disorders: No Hx Psychiatric Problems: No Hx Miscellaneous Medical Probl: Yes (gastritis) Hx Alcohol Use: No Hx Substance Use: No Hx Tobacco Use: Yes Smoking Status: Current every day smoker FmHx Family History: No diabetes, No coronary disease, No other Physical Exam Vitals Vital Signs Date Temp Pulse Resp B/P (MAP) Pulse Ox O2 O2 Flow FiO2 Time Delivery Rate 07/17/18 97.6 84 18 130/60 99 09:28 (83) Physical Exam GENERAL: The patient is well-appearing, well-nourished, in no acute distress HEENT: Atraumatic. Conjunctivae are pink. Pupils equal, round, and reactive to light. There is no scleral icterus. Tympanic membranes clear bilaterally. Oropharynx clear. NECK: C-spine is soft and supple. There is no meningismus. There is no cervical lymphadenopathy. CHEST: Clear to auscultation bilaterally. There are no rales, wheezes or rhonchi. HEART: Regular rate and rhythm. No murmurs, clicks, rubs or gallops. ABDOMEN:Soft, nontender and nondistended. Good bowel sounds. No rebound or guarding. No gross peritonitis. No gross organomegaly or masses. Result Diagram: 07/17/1895207/17/18952 Results 24 hrs Laboratory Tests Test 07/17/18 09:50 07/17/18 09:53 Urine Color YELLOW Urine Clarity SLIGHTLY CLOUDY Urine pH 7.0 Urine Specific [place] 1.029 Urine Ketones NEGATIVE mg/dL Urine Nitrite NEGATIVE mg/dL Urine Bilirubin NEGATIVE mg/dL Urine Urobilinogen NEGATIVE mg/dL Urine Leukocyte Esterase NEGATIVE [place]/ul Urine Microscopic RBC 1 /HPF Urine Microscopic WBC 1 /HPF Urine Mucus FEW /HPF Urine Hemoglobin NEGATIVE mg/dL Urine Glucose NEGATIVE mg/dL Urine Total Protein 1+ mg/dl White Blood Count 13.1 10^3/ul Red Blood Count 4.60 10^6/ul Hemoglobin 13.9 g/dl Hematocrit 42.0 % Mean Corpuscular Volume 91.3 fl Mean Corpuscular Hemoglobin 30.2 pg Mean Corpuscular Hemoglobin Concent 33.1 g/dl Red Cell Distribution Width 13.2 % Platelet Count 328 10^3/UL Mean Platelet Volume 9.5 fl Immature Granulocytes % 0.500 % Neutrophils % 71.5 % Lymphocytes % 19.7 % Monocytes % 6.7 % Eosinophils % 1.2 % Basophils % 0.4 % Nucleated Red Blood Cells % 0.0 /100WBC Immature Granulocytes # 0.070 10^3/ul Neutrophils # 9.3 10^3/ul Lymphocytes # 2.6 10^3/ul Monocytes # 0.9 10^3/ul Eosinophils # 0.2 10^3/ul Basophils # 0.1 10^3/ul Nucleated Red Blood Cells # 0.0 10^3/ul Sodium Level 143 mmol/L Potassium Level 4.5 mmol/L Chloride Level 104 mmol/L Carbon Dioxide Level 28 mmol/L Anion Gap 11 Blood Urea Nitrogen 18 mg/dl Creatinine 0.81 mg/dl Est Glomerular Filtrat Rate mL/min > 60 mL/min Glucose Level 105 mg/dl Calcium Level 10.2 mg/dl Total Bilirubin 0.3 mg/dl Direct Bilirubin 0.00 mg/dl Indirect Bilirubin 0.3 mg/dl Aspartate Amino Transf (AST/SGOT) 27 IU/L Alanine Aminotransferase (ALT/SGPT) 13 IU/L Alkaline Phosphatase 66 IU/L Total Protein 7.8 g/dl Albumin 4.8 g/dl Globulin 3.00 g/dl Albumin/Globulin Ratio 1.60 Lipase 86 U/L Current Medications Medications Dose Sig/Malka Start Time Status Last (Trade) Ordered Route PRN Stop Time Admin Dose Reason Admin Sodium 1,000 ml @ Q1H STAT 07/17/18 DC 07/17/18 Chloride 1,000 mls/hr IV 09:44 09:55 07/17/18 10:43 Ondansetron 4 mg ONCE STAT 07/17/18 DC 07/17/18 HCl (Zofran IV 09:44 09:55 Inj) 07/17/18 09:45 Famotidine 20 mg ONCE STAT 07/17/18 DC (Pepcid) PO 09:44 07/17/18 10:15 Ketorolac 30 mg ONCE STAT 07/17/18 DC 07/17/18 Tromethamine IV 09:44 09:55 (Toradol) 07/17/18 09:45 Famotidine 20 mg ONCE ONCE 07/17/18 DC 07/17/18 (Pepcid Iv) IV 10:30 10:19 07/17/18 10:31 IV Flush 10 ml STK-MED 07/17/18 DC (NS 10 ml) ONCE .ROUTE 11:13 07/17/18 11:14 Sodium 100 ml @ ud STK-MED 07/17/18 DC Chloride ONCE .ROUTE 11:13 07/17/18 11:14 Iohexol 150 ml STK-MED 07/17/18 DC (Omnipaque ONCE .ROUTE 11:13 300mg/ ml) 07/17/18 11:14 Procedures/MDM The kidneys are normal in size without hydronephrosis bilaterally. Again noted are 2 small nonobstructing right renal calcified calculi involving the inferior and superior right renal collecting system measuring approximately 2 and 4 mm respectively. No other renal calcified calculi bilaterally. There are multiple small right renal cysts the largest involving the lateral inferior aspect measuring 0.9 cm. No other intra masses bilaterally. No evidence ureteral calcified calculi or dilatation. Partially contracted urinary bladder with mild to moderate wall thickening likely due to lack of optimal distension and possibly chronic obstruction. Prostate unremarkable. Mild diverticulosis of the sigmoid colon. No CT evidence of diverticulitis. Remainder the colon is unremarkable. Stomach, small bowel and appendix are unremarkable. No evidence of intra-abdominal free air, free fluid, abscesses or lymphadenopathy. No change in the small anterior superior right lobe liver cyst and inferior left lobe 1.5 cm cyst. No new hepatic lesions. Spleen pancreas adrenal glands and gallbladder are unremarkable. No evidence biliary ductal dilation. Mild bibasilar subsegmental atelectasis. Aorta unremarkable. Small fat containing left inguinal hernia without herniated bowel or strangulation. Degenerative changes of the lower thoracic and lumbar spine without acute osseous findings are osteoblastic/osteolytic lesions. IMPRESSION: 1. No change in the 2 small nonobstructing right renal calcified calculi. No other urinary calcified calculi. No obstructive uropathy bilaterally. 2. Multiple small right renal cysts. 3. Liver cysts. 4. Diverticulosis sigmoid colon without CT evidence of diverticulitis. 5. Mild urinary bladder wall thickening likely due to lack of optimal distension or possibly chronic obstruction. Unremarkable prostate. MDM: 42-year-old male resenting with abdominal pain. Patient's pain is may be associated with nephrolithiasis however a low suspicion for infectious process. Patient has normal kidney function. Patient is discharged with supportive medications and told to follow-up with primary care. Patient is told symptoms change or worsen to return immediately to the ER. All questions answered at discharge Departure Diagnosis: Primary Impression: Kidney stone Condition: Stable Patient Instructions: Kidney Stone W/ Colic Referrals: COMMUNITY CLINICS YOU HAVE RECEIVED A MEDICAL SCREENING EXAM AND THE RESULTS INDICATE THAT YOU DO NOT HAVE A CONDITION THAT REQUIRES URGENT TREATMENT IN THE EMERGENCY DEPARTMENT. FURTHER EVALUATION AND TREATMENT OF YOUR CONDITION CAN WAIT UNTIL YOU ARE SEEN IN YOUR DOCTORS OFFICE WITHIN THE NEXT 1-2 DAYS. IT IS YOUR RESPONSIBILITY TO MAKE AN APPOINTMENT FOR FOLOW-UP CARE. IF YOU HAVE A PRIMARY DOCTOR --you should call your primary doctor and schedule an appointment IF YOU DO NOT HAVE A PRIMARY DOCTOR YOU CAN CALL OUR PHYSICIAN REFERRAL HOTLINE AT IF YOU CAN NOT AFFORD TO SEE A PHYSICIAN YOU CAN CHOSE FROM THE FOLLOWING [facility] [address] [facility] [address] [facility] [address] [facility] [address] [facility] [address] [facility] [facility]. [address] Additional Instructions: FOLLOW UP WITH YOUR PRIMARY CARE PHYSICIAN TOMORROW.Return to this facility if you are not improving as expected. KATHRYN VIGIL PA-C Jul 17, 2018 13:09
[2018-07-17 13:19] VITALS: BP 112/60; PULSE 66; RESP 18
== END 2018-07-17 15:03 | disposition home or self-care (01) ==
LOC: FTE 09:24
DX: N20.0 Calculus of kidney (principal); F17.210 Nicotine dependence, cigarettes, uncomplicated
CPT/HCPCS: 36415; 74177; 76705; 80053; 81001; 83690; 85025; 96361; 96374; 96375; J1885; J2405; J7030; Q9967; Z7502; Z7610

== ENCOUNTER 2018-08-20 17:42 | Emergency (ER) | payer MEDICAID ==
[~2018-08-20] VITALS: Wt 75.0 kg
[~2018-08-20 17:42] MED LIST changes: +HYDR-4011 PO; +TAMS-14 PO
[2018-08-20] MEDS ORDERED: KETOROLAC 30 MG INJ IV STA (19:39)
[2018-08-20] MEDS ORDERED: SOD CHLORIDE 0.9% 1,000 ML IV STA (19:39)
[2018-08-20] MEDS ORDERED: ONDANSETRON 4 MG INJ IV STA (19:39)
[2018-08-20] MEDS ORDERED: ONDA4TAB14 PO (21:34)
[2018-08-20] MEDS ORDERED: HYDR-4011 PO (21:34)
[2018-08-20] MEDS ORDERED: TAMS-14 PO (21:34)
--- NOTE | 2018-08-20 21:42 | ERD ---
ER Documentation Chief Complaint Chief Complaint heavy etoh x 4 days, today vomiting and diarrhea HPI 43-year-old male presenting with vomiting and diarrhea today. Patient is been heavily drinking over the last 4 days. He states he does not normally drink heavily because it is a holiday weekend he was excessively drinking. He denies any chest pain or shortness of breath. Has some mild epigastric pain and no fevers. He has not taken medications for symptoms. Denies medical problems. NKDA. Surgical history finger surgery. Social history smokes a pack a day denies drug use. ROS All systems reviewed and are negative except as per history of present illness. Medications Home Meds Active Scripts Ondansetron (Ondansetron Odt) 4 Mg Tab.rapdis, 4 MG PO Q6H PRN for NAUSEA AND/OR VOMITING, #20 TAB Prov:KATHRYN VIGIL PA-C 08/20/18 Tamsulosin Hcl* (Flomax*) 0.4 Mg Cap.er.24h, 0.4 MG PO BID, #30 CAP Prov:KATHRYN VIGIL PA-C 08/20/18 Hydrocodone/Acetaminophen (Lawrence 5-325 Tablet) 1 Each Tablet, 1 TAB PO Q6H PRN for PAIN, #7 TAB Prov:KATHRYN VIGIL PA-C 08/20/18 Tamsulosin Hcl* (Flomax*) 0.4 Mg Cap.er.24h, 0.4 MG PO BID, #30 CAP Prov:KATHRYN VIGIL PA-C 07/17/18 Hydrocodone/Acetaminophen (Lawrence 5-325 Tablet) 1 Each Tablet, 1 TAB PO Q6H PRN for PAIN, #7 TAB Prov:KATHRYN VIGIL PA-C 07/17/18 Ibuprofen* (Motrin*) 600 Mg Tab, 600 MG PO Q6, #30 TAB Prov:LOLI FRAIRE 10/21/16 Diphenhydramine Hcl* (Benadryl*) 25 Mg Cap, 25 MG PO Q6, #30 CAP Prov:LOLI FRAIRE 10/21/16 Tramadol HCl (Tramadol HCl) 50 Mg Tablet, 50 MG PO Q4 PRN for PAIN, #15 TAB Prov:JEAN CARLOS CORMIER MD 05/21/16 Ibuprofen* (Motrin*) 600 Mg Tab, 600 MG PO Q6, #30 TAB Prov:JEAN CARLOS CORMIER MD 05/21/16 Oxycodone HCl/Acetaminophen (Percocet 5-325 mg Tablet) 1 Each Tablet, 1 EACH PO TID for PAIN, #12 TAB Prov:REAL VIERA MD 04/08/16 Ondansetron Hcl* (Zofran*) 4 Mg Tablet, 4 MG PO Q8H PRN for NAUSEA AND/OR VOMITING, #15 TAB Prov:REAL VIERA MD 04/08/16 Ibuprofen* (Ibuprofen*) 600 Mg Tablet, 600 MG PO Q8 for PAIN AND/OR INFLAMMATION, #30 TAB Prov:REAL VIERA MD 04/08/16 Reported Medications [Sleep Meds] No Conflict Check, PO QHS 04/08/16 Allergies Allergies: Coded Allergies: No Known Allergy (Unverified , 05/21/16) PMhx/Soc History of Surgery: Yes (left middle finger sx) Anesthesia Reaction: No Hx Neurological Disorder: No Hx Respiratory Disorders: No Hx Cardiac Disorders: No Hx Psychiatric Problems: No Hx Miscellaneous Medical Probl: Yes (gastritis) Hx Alcohol Use: No Hx Substance Use: No Hx Tobacco Use: Yes Smoking Status: Current every day smoker FmHx Family History: No diabetes, No coronary disease, No other Physical Exam Vitals Vital Signs Date Temp Pulse Resp B/P (MAP) Pulse Ox O2 O2 Flow FiO2 Time Delivery Rate 08/20/18 98.1 70 18 123/76 99 17:48 (92) Physical Exam GENERAL: The patient is well-appearing, well-nourished, in no acute distress HEENT: Atraumatic. Conjunctivae are pink. Pupils equal, round, and reactive to light. There is no scleral icterus. Tympanic membranes clear bilaterally. Oropharynx clear. NECK: C-spine is soft and supple. There is no meningismus. There is no cervical lymphadenopathy. CHEST: Clear to auscultation bilaterally. There are no rales, wheezes or rhonchi. HEART: Regular rate and rhythm. No murmurs, clicks, rubs or gallops. ABDOMEN:Soft, nontender and nondistended. Good bowel sounds. No rebound or guarding. No gross peritonitis. No gross organomegaly or masses. No Mera sign or McBurney point tenderness. BACK: No midline or flank tenderness. Result Diagram: 08/20/18 1950 08/20/18 1950 Results 24 hrs Laboratory Tests Test 08/20/18 19:50 White Blood Count 8.4 10^3/ul Red Blood Count 4.12 10^6/ul Hemoglobin 12.4 g/dl Hematocrit 37.5 % Mean Corpuscular Volume 91.0 fl Mean Corpuscular Hemoglobin 30.1 pg Mean Corpuscular Hemoglobin Concent 33.1 g/dl Red Cell Distribution Width 13.1 % Platelet Count 304 10^3/UL Mean Platelet Volume 9.3 fl Immature Granulocytes % 1.400 % Neutrophils % 45.0 % Lymphocytes % 41.0 % Monocytes % 10.2 % Eosinophils % 1.4 % Basophils % 1.0 % Nucleated Red Blood Cells % 0.0 /100WBC Immature Granulocytes # 0.120 10^3/ul Neutrophils # 3.8 10^3/ul Lymphocytes # 3.4 10^3/ul Monocytes # 0.9 10^3/ul Eosinophils # 0.1 10^3/ul Basophils # 0.1 10^3/ul Nucleated Red Blood Cells # 0.0 10^3/ul Urine Color YELLOW Urine Clarity CLEAR Urine pH 8.0 Urine Specific [place] 1.020 Urine Ketones NEGATIVE mg/dL Urine Nitrite NEGATIVE mg/dL Urine Bilirubin NEGATIVE mg/dL Urine Urobilinogen NEGATIVE mg/dL Urine Leukocyte Esterase NEGATIVE [place]/ul Urine Hemoglobin NEGATIVE mg/dL Urine Glucose NEGATIVE mg/dL Urine Total Protein NEGATIVE mg/dl Sodium Level 142 mmol/L Potassium Level 4.2 mmol/L Chloride Level 104 mmol/L Carbon Dioxide Level 28 mmol/L Anion Gap 10 Blood Urea Nitrogen 9 mg/dl Creatinine 0.71 mg/dl Est Glomerular Filtrat Rate mL/min > 60 mL/min Glucose Level 99 mg/dl Calcium Level 9.0 mg/dl Total Bilirubin 0.3 mg/dl Direct Bilirubin 0.00 mg/dl Indirect Bilirubin 0.3 mg/dl Aspartate Amino Transf (AST/SGOT) 29 IU/L Alanine Aminotransferase (ALT/SGPT) 13 IU/L Alkaline Phosphatase 66 IU/L Total Protein 7.9 g/dl Albumin 4.4 g/dl Globulin 3.50 g/dl Albumin/Globulin Ratio 1.25 Lipase 43 U/L Current Medications Medications Dose Sig/[place] Start Time Status Last (Trade) Ordered Route PRN Stop Time Admin Dose Reason Admin Sodium 1,000 ml @ Q1H STAT 08/20/18 DC 08/20/18 Chloride 1,000 mls/hr IV 19:39 20:34 08/20/18 20:38 Ondansetron 4 mg ONCE STAT 08/20/18 DC 08/20/18 HCl (Zofran IV 19:39 20:36 Inj) 08/20/18 19:41 Ketorolac 30 mg ONCE STAT 08/20/18 DC 08/20/18 Tromethamine IV 19:39 20:36 (Toradol) 08/20/18 19:42 Procedures/MDM DIAGNOSTIC IMAGING REPORT Patient: EMIL AKERS : 1975 Age: 43 Sex: M MR #: [id number] DOS: 08/20/18 193 Ordering MD: GUSTAVO VIGIL PA-C Location: [facility] Room/Bed: PROCEDURE: CT abdomen and pelvis without contrast. CLINICAL INDICATION: Abdominal pain. TECHNIQUE: CT scan of the abdomen and pelvis without contrast was performed. Sagittal and coronal reformatted images were obtained from the axial source images. DICOM images are available. One or more of the following dose reduction techniques were used: Automated exposure control, adjustment of the mA and/or kV according to patient size, use of iterative reconstruction technique. CTDI = 6.48 mGy; DLP = 406.44 mGy-cm COMPARISON: CT 07/17/2018. Gallbladder ultrasound 08/20/2018 FINDINGS: Visualized lower thorax: The lung bases are clear. There is no evidence for pleural effusion. Liver, gallbladder, pancreas and spleen: The liver is normal and size, contour and attenuation. There is no evidence for a solid liver mass or ductal dilatation, a small incidental cyst of the left hepatic lobe is again noted. The gallbladder is unremarkable. No common bile duct abnormality is demonstrated. The pancreas is unremarkable. The spleen is normal in size. Adrenal glands and genitourinary system: The adrenal glands are normal bilaterally. An approximately 2 mm right lower pole renal calculus is present without evidence for hydronephrosis. A 3 mm right upper pole renal calculus is also again seen without hydronephrosis. The left kidney is unremarkable. The u reters are unremarkable. No urinary bladder abnormality is demonstrated. The prostate gland is normal in size. The scrotum shows no evidence of abnormality. Gastrointestinal system: The stomach is normal in caliber with no abnormality of significance. The small bowel is normal in caliber with no ileus, obstruction or wall thickening. The appendix and surrounding fat are within the limits of normal. The colon shows no evidence for wall thickening or acute abnormality. A few colonic diverticula are again demonstrated There is no evidence for colitis or diverticulitis. Peritoneum, retroperitoneum, lymph nodes and vessels: The abdominal aorta is normal in caliber. There is no evidence for atherosclerotic calcification. The inferior vena cava is unremarkable. There is no evidence for adenopathy or mass. There is no ascites. No pneumoperitoneum is present Osseous structures and musculoskeletal findings: There is no fracture, lytic or blastic lesion. No muscular abnormality or soft tissue pathology is present. RPTAT:HJJR IMPRESSION: 1. Stable right intrarenal calculi without evidence of hydronephrosis, the largest calculus estimated at 3 mm in the right upper pole. The previously seen renal cysts on the contrast enhanced exam are not evident on this noncontrast s tudy. 2. Minimal diverticular disease of the colon without diverticulitis. 3. Incidental hepatic cysts are noted and do not require imaging follow-up. 4. Previously seen urinary bladder wall thickening is not present. DIAGNOSTIC IMAGING REPORT Patient: EMIL AKERS : 1975 Age: 43 Sex: M MR #: [id number] DOS: 08/20/189 Ordering MD: GUSTAVO VIGIL PA-C Location: [facility] Room/Bed: PROCEDURE: US Abdomen (right upper quadrant). CLINICAL INDICATION: Right upper quadrant abdomen pain. TECHNIQUE: Multiple real-time longitudinal and transverse images of the right upper quadrant of the abdomen were acquired utilizing a curved array transducer. Images were reviewed on a high-resolution PACS workstation. COMPARISON: Right upper quadrant abdomen ultrasound dated 07/17/2018 FINDINGS: The liver is normal in size and normal in echogenicity. There is no focal hepatic lesion. Color Doppler and pulsed Doppler sonography demonstrate normal antegrade flow in the portal vein. The gallbladder is normal with no stones or wall thickening. The bile ducts are normal with the common bile duct measuring 2.1 mm in diameter. The visualized portions of the pancreas are unremarkable with obscuration of the tail of the pancreas. No free fluid is present. The right kidney measures 10.6 cm. There is normal echogenicity of the right kidney. There is no perinephric fluid collection. No hydronephrosis, mass, or calculus is seen. IMPRESSION: 1. Unremarkable right upper quadrant abdomen ultrasound. ER Course: 1L NS given in ED MDM: 43-year-old male presenting with vomiting and epigastric pain after heavy drinking. Patient's blood work is within normal limits. Patient does have findings consistent with a kidney stone but does not have blood in his urine and no signs of infection. Patient's kidney function is normal. I have low suspicion for dehydration. Patient's blood work is within normal limits. Patient was given fluids in the ER. Patient's abdominal pain and vomiting is likely associated with heavy drinking from this weekend. Patient does not require further blood work or imaging. Patient is discharged with strict ER precautions and follow-up with primary care within 1 to 2 days for close evaluation. She is told symptoms change or worsen to return immediately to the ER. All questions answered at discharge Departure Diagnosis: Primary Impression: Kidney stone Additional Impression: Vomiting Condition: Stable Patient Instructions: Vomiting (6Y-Adult), Kidney Stone W/ Colic Referrals: [facility] YOU HAVE RECEIVED A MEDICAL SCREENING EXAM AND THE RESULTS INDICATE THAT YOU DO NOT HAVE A CONDITION THAT REQUIRES URGENT TREATMENT IN THE EMERGENCY DEPARTMENT. FURTHER EVALUATION AND TREATMENT OF YOUR CONDITION CAN WAIT UNTIL YOU ARE SEEN IN YOUR DOCTORS OFFICE WITHIN THE NEXT 1-2 DAYS. IT IS YOUR RESPONSIBILITY TO MAKE AN APPOINTMENT FOR FOLOW-UP CARE. IF YOU HAVE A PRIMARY DOCTOR --you should call your primary doctor and schedule an appointment IF YOU DO NOT HAVE A PRIMARY DOCTOR YOU CAN CALL OUR PHYSICIAN REFERRAL HOTLINE AT IF YOU CAN NOT AFFORD TO SEE A PHYSICIAN YOU CAN CHOSE FROM THE FOLLOWING [facility] [address] [facility] [address] [facility] [address] [facility] [address] [facility] [address]. [facility] [address] Additional Instructions: FOLLOW UP WITH YOUR PRIMARY CARE PHYSICIAN TOMORROW.Return to this facility if you are not improving as expected. KATHRYN VIGIL PA-C August 20, 2018 21:41
[2018-08-20 22:11] VITALS: BP 132/88; PULSE 77; RESP 16
== END 2018-08-20 22:11 | disposition home or self-care (01) ==
LOC: FTE 17:42
DX: N20.0 Calculus of kidney (principal); F17.210 Nicotine dependence, cigarettes, uncomplicated
CPT/HCPCS: 36415; 74176; 76705; 80053; 81003; 83690; 85025; 96374; 96375; J1885; J2405; J7030; Z7502